=== PATIENT | female | born 1980 | race Caucasian/White ===

== ENCOUNTER 2018-06-27 12:30 | Outpatient (CLI) | payer MEDICARE, MEDICAID ==
--- NOTE | 2018-06-27 18:02 | MRI Report ---
Reason: INTERNAL DERANGEMENT OF LEFT KNEE Procedure Date: 06/27/2018 Accession Number: [id number] / [id number] Procedure: MRI - Knee LT W/O CPT Code: FULL RESULT: EXAM: LEFT KNEE MRI WITHOUT CONTRAST EXAM DATE: 06/27/2018 01:16 PM. CLINICAL HISTORY: Left knee pain. COMPARISON: None. TECHNIQUE: Multiplanar, multisequence T1-weighted and fluid-sensitive sequences of the knee without contrast. Other: None. FINDINGS: Bones: Small bone island at the medial femoral condyle. No acute fracture or marrow edema. Articular Cartilage: Focal grade 1 chondromalacia at the inferior aspect of the lateral patellar facet. Medial Meniscus: The medial meniscus is intact. Lateral Meniscus: The lateral meniscus is intact. Cruciate Ligaments: The anterior and posterior cruciate ligaments are intact. Collateral Ligaments: The medial collateral and lateral collateral ligamentous structures are intact. Tendons: The quadriceps, patellar, semimembranosus, and popliteus tendons are unremarkable. Musculature: No edema or fatty atrophy. Other: No effusion. No popliteal cyst. No loose bodies. The medial and lateral retinacula are intact. The subcutaneous tissues and fat pads are unremarkable. IMPRESSION: 1. Focal grade 1 chondromalacia at the inferior aspect of the lateral patellar facet. 2. Small bone island at the medial femoral condyle. 3. Otherwise, unremarkable MRI of the left knee. No evidence of ligament or meniscal injury. [facility] MUSCULOSKELETAL RADIOLOGY SECTION
== END 2018-06-27 12:31 | disposition home or self-care (01) ==
LOC: DI 12:30
PROVIDERS: ATTEND Family Medicine
DX: M22.42 Chondromalacia patellae, left knee (principal)

== ENCOUNTER 2021-06-22 08:00 | Outpatient (CLI) | payer MEDICARE, MEDICAID | END 2021-06-22 23:59 | LOC: LAB.N 08:00 | PROVIDERS: ATTEND Nurse Practitioner | DX: R07.0 Pain in throat (principal); Z20.822 Contact with and (suspected) exposure to COVID-19 | CPT/HCPCS: 87070; U0004 ==

== ENCOUNTER 2022-06-16 08:00 | Outpatient (CLI) | payer MEDICARE, MEDICAID ==
[2022-06-16 17:00] LABS: BASOPHILS % (AUTO) 0.8 %; EOSINOPHILS # (AUTO) 0.2 10^3/uL (0.0-0.7); EOSINOPHILS % (AUTO) 4.4 %; HCT - HEMATOCRIT 37.4 % (37.0-47.0); HGB - HEMOGLOBIN 12.5 g/dL (12.0-16.0); LYMPHOCYTES # (AUTO) 1.1 10^3/uL (1.5-3.5); LYMPHOCYTES % (AUTO) 20.9 %; MEAN CORPUSCULAR HEMOGLOBIN 30.7 pg (27.0-31.0); MEAN CORPUSCULAR HGB CONC 33.4 g/dL (32.0-36.0); MEAN CORPUSCULAR VOLUME 91.9 fL (81.0-99.0); MEAN PLATELET VOLUME 9.5 fL (7.9-10.8); MONOCYTES # (AUTO) 0.5 10^3/uL (0.0-1.0); NEUTROPHILS # (AUTO) 3.2 10^3/uL (1.5-6.6); NEUTROPHILS % (AUTO) 63.7 %; PLT - PLATELET COUNT 277 10^3/uL (130-450); RED BLOOD COUNT 4.07 10^6/uL (4.20-5.40); RED CELL DISTRIBUTION WIDTH 13.6 % (12.0-15.0)
[2022-06-16 17:17] LABS: ALBUMIN 3.9 g/dL (3.2-5.5); ALBUMIN/GLOBULIN RATIO 0.9 (1.0-2.2); ALKALINE PHOSPHATASE 54 IU/L (42-121); ALT ALANINE AMINOTRANSFERASE 11 IU/L (10-60); AST ASPARTATE AMINOTRANSFERASE 18 IU/L (10-42); BILIRUBIN,TOTAL 0.3 mg/dL (0.2-1.0); BUN - BLOOD UREA NITROGEN 12 mg/dL (6-20); CARBON DIOXIDE - CO2 27 mmol/L (21-32); CHLORIDE 97 mmol/L (101-111); CHOL/HDL RATIO 3.9 (<4.4); CHOLESTEROL 147 mg/dL; CREATININE 0.8 mg/dL (0.4-1.0); GFR - MDRD 79 (>89); GLUCOSE 99 mg/dL (70-100); HDL CHOLESTEROL 38 mg/dL; LDL CHOLESTEROL,CALCULATED 83 mg/dL; LDL/HDL RATIO 2.2 (<4.4); POTASSIUM 4.1 mmol/L (3.5-5.0); SODIUM 133 mmol/L (135-145); TOTAL PROTEIN 8.2 g/dL (6.7-8.2); TRIGLYCERIDES 129 mg/dL; VLDL CHOLESTEROL 26 mg/dL
== END 2022-06-16 23:59 | disposition home or self-care (01) ==
LOC: LAB.R 08:00
PROVIDERS: ATTEND Internal Medicine
DX: Z00.00 Encounter for general adult medical examination without abnormal findings (principal); F41.9 Anxiety disorder, unspecified; K90.0 Celiac disease; Q24.9 Congenital malformation of heart, unspecified; R74.8 Abnormal levels of other serum enzymes; I10 Essential (primary) hypertension; G43.909 Migraine, unspecified, not intractable, without status migrainosus; Z79.899 Other long term (current) drug therapy; Q99.8 Other specified chromosome abnormalities
CPT/HCPCS: 80053; 80061; 83721; 84443; 85025

== ENCOUNTER 2022-08-17 19:06 | Emergency (ER) | payer MEDICARE, MEDICAID ==
--- NOTE | 2022-08-17 20:23 | ED Physician Documentation ---
PD HPI HEADACHE - Stated complaint Stated Complaint: MIGRAINE - Chief complaint Chief Complaint: Neuro - History obtained from History obtained from: Patient, Family - Additional information Additional information: 42-year-old woman with history of Juma syndrome, supravalvular aortic stenosis status postrepair and history of migraines gets infrequent migraines and presents with 8 days of constant headache that was preceded by runny nose, cough, sore throat and myalgias. She tested negative for COVID and the flu. She is tried numerous things at home for the headache including but not limited to NSAIDs, hydrocodone. She is also on Cipro prescribed by the walk-in clinic for presumed sinusitis. Nothing is helping. Headache is gradual in onset, bitemporal, associated with nausea and light sensitivity. It is the worst headache of her life. She denies fevers or neck stiffness. She is here with her mother. Review of Systems Ten Systems: 10 systems reviewed and negative Constitutional: denies: Fever, Chills Ears: reports: Reviewed and negative Nose: reports: Rhinorrhea / runny nose, Sinus pressure / pain Throat: reports: Sore throat PD PAST MEDICAL HISTORY - Past Medical History Cardiovascular: Hypertension GI: Other Psych: Anxiety, Panic attacks - Past Surgical History Past Surgical History: Yes General: Bowel surgery, Colonoscopy - Present Medications Home Medications: Ambulatory Orders Medication Instructions Recorded Confirmed Buspirone HCl 10 mg PO BID 02/25/13 04/04/15 Clonazepam 1 mg PO QPM 02/25/13 04/04/15 Escitalopram [Lexapro] 10 mg PO DAILY 02/25/13 12/21/15 LORazepam [Ativan] 1 mg PO ONCE PRN 02/25/13 12/21/15 OLANZapine [ZyPREXA] 3.75 mg PO DAILY 02/25/13 12/21/15 Propranolol ER [Inderal LA] 80 mg PO DAILY 02/25/13 12/21/15 Hydrocodone/Acetaminophen 1 - 2 each PO Q6H PRN #15 tablet 04/04/15 12/21/15 [Hydrocodon-Acetaminophen 5-325] Lansoprazole 15 mg ORAL DAILY 04/04/15 12/21/15 clonazePAM [KlonoPIN] 1 mg PO DAILY 12/21/15 12/21/15 Oxycodone HCl/Acetaminophen 1 each PO Q6H PRN #15 tablet 12/22/15 [Percocet 5-325 mg Tablet] methocarbamoL [Robaxin] 500 mg PO Q6H PRN #25 tablet 12/22/15 Butalb/Acetaminophen/Caffeine 1 each PO Q4H PRN #20 cap 08/17/22 [Fioricet 50-300-40 mg Capsule] Metoclopramide [Reglan] 10 mg PO Q6H PRN #20 tablet 08/17/22 - Allergies Allergies/Adverse Reactions: Allergies Allergy/AdvReac Type Severity Reaction Status Date / Time cephalexin monohydrate * Allergy Severe Edema Verified 08/17/22 19:21 [From Keflex] erythromycin base Allergy Severe Edema Verified 08/17/22 19:21 [Erythromycin Base] Penicillins Allergy Severe Edema Verified 08/17/22 19:21 Sulfa (Sulfonamide Allergy Intermediate Rash Verified 08/17/22 19:21 Antibiotics) tetracycline [Tetracycline] Allergy Intermediate Rash Verified 08/17/22 19:21 vancomycin Allergy Intermediate Rash Verified 08/17/22 19:21 Cephalosporins Allergy Edema Verified 08/17/22 19:21 - Social History Does the pt smoke?: No Smoking Status: Never smoker Does the pt drink ETOH?: No Does the pt have substance abuse?: No - Immunizations Immunizations are current?: Yes - POLST Patient has POLST: Yes PD ED PE NORMAL - Vitals Vital signs reviewed: Yes - General General: Alert and oriented X 3, No acute distress - HEENT HEENT: PERRL, EOMI, Ears normal, Other (Bilateral maxillary sinus tenderness) - Neck Neck: Supple, no meningeal sign, No bony TTP - Cardiac Cardiac: RRR, No murmur - Respiratory Respiratory: No respiratory distress, Clear bilaterally - Abdomen Abdomen: Normal bowel sounds, Soft, Non tender - Derm Derm: No rash - Neuro Neuro: Alert and oriented X 3, Normal speech Results - Vitals Vitals: Vital Signs - 24 hr 08/17/22 08/17/22 08/17/22 19:16 21:21 23:00 Temperature 36.5 C Heart Rate 62 60 62 Respiratory 16 16 17 Rate Blood Pressure 143/72 H 138/71 H 130/69 O2 Saturation 100 99 99 08/17/22 23:01 Temperature 36.5 C Heart Rate 60 Respiratory 19 Rate Blood Pressure 133/69 H O2 Saturation 99 Oxygen O2 Source Room air - Labs Labs: Laboratory Tests 08/17/22 08/17/22 20:42 20:42 WBC 8.9 RBC 4.13 L Hgb 12.6 Hct 38.4 MCV 93.0 MCH 30.5 MCHC 32.8 RDW 14.3 Plt Count 333 MPV 8.3 Neut # (Auto) 4.4 Lymph # (Auto) 3.2 [place] # (Auto) 0.8 Eos # (Auto) 0.5 Baso # (Auto) 0.1 Absolute Nucleated RBC 0.00 Nucleated RBC % 0.0 Sodium 136 Potassium 4.2 Chloride 98 L Carbon Dioxide 27 Anion Gap 11.0 BUN 14 Creatinine 0.9 Estimated GFR (MDRD) 69 L Glucose 114 H Calcium 9.9 Total Bilirubin 0.5 AST 17 ALT 19 Alkaline Phosphatase 56 Total Protein 9.3 H Albumin 4.2 Globulin 5.1 H Albumin/Globulin Ratio 0.8 L PD MEDICAL DECISION MAKING - ED course ED course: 42yo female here with mom, hx Juma syndrome and migraines. Has WHOL, but nothing else to suggest sinister etiology such as sudden onset, fever, neck stiff. CTA neg. Initial Tx IV benadryl, reglan, and toradol. Pain from 10 to 5 After IV droperidol down to 2-3 and pt very happy with that. Departure - Departure Disposition: 01 Home, Self Care Clinical Impression: Migraine Condition: Good Record reviewed to determine appropriate education?: Yes Instructions: ED Headache Migraine Prescriptions: Butalb/Acetaminophen/Caffeine [Fioricet 50-300-40 mg Capsule] 1 each PO Q4H PRN #20 cap PRN Reason: Headache Metoclopramide [Reglan] 10 mg PO Q6H PRN #20 tablet PRN Reason: nausea or headache Comments: You are seen tonight for a headache of 8 days duration. Thankfully diagnostic testing did not show anything of significance, the CT angiography of the head w as negative with exception of some fluid in the mastoids which are the posterior sinuses, not where you are having your pain. Initially we gave you a combination of Reglan, Toradol, and Benadryl which took your headache down pretty good and this was followed by a shot of droperidol which was even more effective. I sent your prescriptions electronically to [facility] in [place]. Call your doctor to arrange a follow-up appointment, make the next available appointment. In the interim, return anytime if worse or if new symptoms develop. Discharge Date/Time: 08/17/22 23:20
[2022-08-17] MEDS ORDERED: SODIUM CHLORIDE 0.9% 1,000 ML IV STA (20:32)
[2022-08-17] MEDS ORDERED: METOCLOPRAMIDE 10 MG/2 ML VIAL IVP STA (20:32)
[2022-08-17] MEDS ORDERED: KETOROLAC 15 MG/ML VIAL IVP STA (20:32)
[2022-08-17] MEDS ORDERED: diphenhydrAMINE INJ 50 MG/ML VIAL IVP STA (20:32)
[2022-08-17 20:48] LABS: BASOPHILS # (AUTO) 0.1 10^3/uL (0.0-0.1); BASOPHILS % (AUTO) 0.7 %; EOSINOPHILS # (AUTO) 0.5 10^3/uL (0.0-0.7); HCT - HEMATOCRIT 38.4 % (37.0-47.0); HGB - HEMOGLOBIN 12.6 g/dL (12.0-16.0); LYMPHOCYTES # (AUTO) 3.2 10^3/uL (1.5-3.5); LYMPHOCYTES % (AUTO) 36.3 %; MEAN CORPUSCULAR HEMOGLOBIN 30.5 pg (27.0-31.0); MEAN CORPUSCULAR HGB CONC 32.8 g/dL (32.0-36.0); MEAN PLATELET VOLUME 8.3 fL (7.9-10.8); MONOCYTES # (AUTO) 0.8 10^3/uL (0.0-1.0); MONOCYTES % (AUTO) 8.5 %; NEUTROPHILS # (AUTO) 4.4 10^3/uL (1.5-6.6); NEUTROPHILS % (AUTO) 49.3 %; PLT - PLATELET COUNT 333 10^3/uL (130-450); RED BLOOD COUNT 4.13 10^6/uL (4.20-5.40); RED CELL DISTRIBUTION WIDTH 14.3 % (12.0-15.0); WHITE BLOOD COUNT 8.9 x10^3/uL (4.8-10.8)
[2022-08-17 21:01] LABS: ALBUMIN 4.2 g/dL (3.2-5.5); ALBUMIN/GLOBULIN RATIO 0.8 (1.0-2.2); BILIRUBIN,TOTAL 0.5 mg/dL (0.2-1.0); CALCIUM 9.9 mg/dL (8.5-10.3); CREATININE 0.9 mg/dL (0.4-1.0); POTASSIUM 4.2 mmol/L (3.5-5.0); TOTAL PROTEIN 9.3 g/dL (6.7-8.2)
[2022-08-17] MEDS ORDERED: iohexoL-300 100 ML VIAL ONE (21:11)
--- NOTE | 2022-08-17 22:03 | CT Report ---
PROCEDURE: ANGIO HEAD W/WO INDICATIONS: headache CONTRAST: Omni 300 80ml TECHNIQUE: Precontrast 4.5 mm thick angled axial sections acquired from the foramen magnum to the vertex. Afte r the administration of intravenous contrast, 1 mm thick sections acquired through the [place] of [place] is. Postcontrast 4.5 mm thick sections then re-acquired from the foramen magnum to the vertex. 3-di mensional lhmhovl-ueefcbgfb-sdxwfzmpuc (MIP) and/or volume rendering reformats were acquired of the c entral intracranial vasculature. For radiation dose reduction, the following was used: automated ex posure control, adjustment of mA and/or kV according to patient size. COMPARISON: CT head 12/22/2015 FINDINGS: Image quality: There is mild motion artifact limiting evaluation. Anterior circulation: Intracranial internal carotid arteries are patent bilaterally. The paired an terior cerebral arteries are patent bilaterally. There is tortuosity of the A1 segment of the right a nterior cerebral artery which courses over midline to the left side but appears patent. The middle ce rebral arteries are also patent bilaterally. The anterior communicating artery is patent. No high-g rade stenosis, occlusion, or discrete filling defects. No cerebral aneurysm identified. Posterior circulation: There is a right dominant vertebral basilar system with a diminutive left vert ebral artery. The basilar artery is prominent supplied by the right vertebral artery. The basilar art german[place] appears patent along its course. The posterior cerebral arteries are patent bilaterally. There is persistent second lesion on the left, with the left posterior cerebral artery supplied by a po sterior communicating artery. No high-grade stenosis, occlusion, or discrete filling defects. No cere bral aneurysm identified. CSF spaces: Basal cisterns are patent. No extra-axial fluid collections. Ventricles are normal in size and shape. Brain: No intracranial hemorrhage, mass, or mass effect. Del Angel-white matter interface appears preser deb. Skull and face: Calvarium and facial bones appear intact, without suspicious lesions. Sinuses: Visualized sinuses demonstrate mild mucosal thickening within the inferior mastoid sinuses. Mastoid air cells are clear. IMPRESSION: 1. No acute intracranial abnormality. 2. No high-grade stenosis or occlusion of the central intracranial arteries. 3. No cerebral aneurysms identified. Reviewed by: Kory Jarvis MD on 08/17/2022 10:02 PM [facility] Approved by: Kory Jarvis MD on 08/17/2022 10:02 PM [facility] Station ID: [id number]
[2022-08-17] MEDS ORDERED: DROPERIDOL 5 MG/2 ML VIAL IVP STA (22:16)
[2022-08-17] MEDS ORDERED: iohexoL-300 100 ML VIAL IVP ONE (22:36)
[2022-08-17 23:02] VITALS: BP 133/69
== END 2022-08-17 23:20 | disposition home or self-care (01) ==
LOC: ED 19:06
DX: G43.909 Migraine, unspecified, not intractable, without status migrainosus (principal)
CPT/HCPCS: 36415; 70496; 80053; 85025; 96361; 96374; 96375; 99284; J1200; J2765; Q9967

== ENCOUNTER 2022-11-23 09:10 | Emergency (ER) | payer MEDICARE, MEDICAID ==
[2022-11-23] MEDS ORDERED: diphenhydrAMINE INJ 50 MG/ML VIAL IVP STA (10:46)
[2022-11-23] MEDS ORDERED: PROCHLORPERAZINE 10 MG/2 ML VIAL IVP STA (10:46)
[2022-11-23] MEDS ORDERED: DEXAMETHASONE 10 MG/ML VIAL IVP STA (10:46)
[2022-11-23] MEDS ORDERED: SODIUM CHLORIDE 0.9% 1,000 ML IV STA (10:46)
[2022-11-23] MEDS ORDERED: KETOROLAC 30 MG/ML VIAL IVP STA (10:46)
[2022-11-23 11:20] VITALS: BP 166/83
--- NOTE | 2022-11-23 11:49 | ED Physician Documentation ---
PD HPI HEADACHE - Stated complaint Stated Complaint: MIGRAINE - Chief complaint Chief Complaint: Neuro - History obtained from History obtained from: Patient, Family - History of Present Illness Timing - onset: Enter time (399), Today Timing - onset during: Rest Timing - duration: Hours Timing - details: Gradual onset, Still present Location: Front Quality: Throbbing Associated symptoms: Nausea, Vomiting, Other (photophobia). No: Fever, Stiff neck, Weakness, Numbness, Syncope, Seizure, Eye pain, Vision changes Improved by: Rest, Dark room Contributing factors: No: Anticoagulated, Possible carbon monoxide, Recent illness, Trauma Similar symptoms before: Diagnosis (migraine) Recently seen: Not recently seen - Additional information Additional information: 42-year-old Tiffany Cruz is a female with a history of Juma syndrome and supra aortic stenosis which has been repaired. She is having a problem with recurrent headache and persistent migraine. She was seen in the emergency department in August with this headache and since it was the worst headache she had and she had not been having headaches a CTA of the head was done without specific findings. She had successful treatment with Inapsine. She has not had relief of his headache with ibuprofen and Tylenol. She is here today with her mother who provides additional history as she has some developmental delay. Review of Systems Constitutional: denies: Fever, Chills, Myalgias Eyes: reports: Photophobia. denies: Decreased vision Nose: denies: Rhinorrhea / runny nose, Congestion Throat: denies: Sore throat Cardiac: denies: Chest pain / pressure, Palpitations Respiratory: denies: Dyspnea, Cough GI: reports: Nausea, Vomiting. denies: Abdominal Pain : denies: Dysuria, Frequency Skin: denies: Rash Musculoskeletal: denies: Neck pain, Back pain, Extremity pain PD PAST MEDICAL HISTORY - Past Medical History Past Medical History: Yes Cardiovascular: Hypertension, Murmur, Valve disorder Respiratory: Asthma Neuro: Headaches, Migraines GI: Other DEAN OF FACULTY: None : None HEENT: None Psych: Depression, Anxiety, Panic attacks Musculoskeletal: None Derm: None, Other Other Past Medical History: Juma syndrome - Past Surgical History Past Surgical History: Yes General: Bowel surgery, Colonoscopy - Present Medications Home Medications: Ambulatory Orders Medication Instructions Recorded Confirmed Clonazepam 1 mg PO QPM 02/25/13 11/23/22 Escitalopram [Lexapro] 10 mg PO DAILY 02/25/13 11/23/22 LORazepam [Ativan] 1 mg PO ONCE PRN 02/25/13 11/23/22 Propranolol ER [Inderal LA] 80 mg PO DAILY 02/25/13 11/23/22 Buspirone HCl 10 mg PO TID 11/23/22 11/23/22 OLANZapine [Zyprexa] 5 mg PO HS 11/23/22 11/23/22 - Allergies Allergies/Adverse Reactions: Allergies Allergy/AdvReac Type Severity Reaction Status Date / Time cephalexin monohydrate * Allergy Severe Edema Verified 11/23/22 09:17 [From Keflex] erythromycin base Allergy Severe Edema Verified 11/23/22 09:17 [Erythromycin Base] Penicillins Allergy Severe Edema Verified 11/23/22 09:17 Sulfa (Sulfonamide Allergy Intermediate Rash Verified 11/23/22 09:17 Antibiotics) tetracycline [Tetracycline] Allergy Intermediate Rash Verified 11/23/22 09:17 vancomycin Allergy Intermediate Rash Verified 11/23/22 09:17 Cephalosporins Allergy Edema Verified 11/23/22 09:17 latex Allergy Hives Verified 11/23/22 09:17 - Social History Does the pt smoke?: No Smoking Status: Never smoker Does the pt drink ETOH?: No Does the pt have substance abuse?: No - Immunizations Immunizations are current?: Yes - POLST Patient has POLST: Yes PD ED PE NORMAL - Vitals Vital signs reviewed: Yes (hypertensive mild) - General General: No acute distress, Well developed/nourished - HEENT HEENT: Atraumatic, PERRL, EOMI - Neck Neck: Supple, no meningeal sign, No bony TTP, Other (There is point tenderness bilaterally at the insertion of the trapezius into the occiput.) - Cardiac Cardiac: RRR, No murmur - Respiratory Respiratory: No respiratory distress, Clear bilaterally - Abdomen Abdomen: Soft, Non tender - Back Back: No CVA TTP, No spinal TTP - Derm Derm: Normal color, Warm and dry, No rash - Extremities Extremities: No deformity, No edema - Neuro Neuro: dictaphone mechanic 2-12 intact, No motor deficit, No sensory deficit, Normal speech Eye Opening: Spontaneous Motor: Obeys Commands Verbal: Oriented GCS Score: 15 - Psych Psych: Normal mood, Normal affect Results - Vitals Vitals: Vital Signs - 24 hr 11/23/22 11/23/22 11/23/22 09:14 09:46 11:16 Temperature 36.8 C Heart Rate 70 66 66 Respiratory 20 16 16 Rate Blood Pressure 144/67 H 157/80 H 166/83 H O2 Saturation 98 97 97 Oxygen O2 Source Room air PD Medical Decision Making - ED course Complexity details: considered differential, d/w patient, d/w family ED course: 42-year-old female with Juma syndrome has what sounds like a migraine headache and she is treated with migraine cocktail consisting of dexamethasone Compazine Benadryl Toradol saline and she has marked improvement. I did note on examination today that the patient has point tenderness at the insertion of the trapezius into the occiput. Consistent with greater occipital neuritis as a possible contributing factor to headaches. I have asked her to follow-up with her neurologist as she is planning. Departure - Departure Disposition: Home, Self Care Clinical Impression: Migraine Qualifiers: Migraine type: unspecified Status migrainosus presence: without status migrainosus Intractability: not intractable Qualified Code(s): G43.909 - Migraine, unspecified, not intractable, without status migrainosus Condition: Stable Instructions: ED Headache Migraine, ED Headache Tension Follow-Up: Teresa Duffy MD [Primary Care Provider] - Comments: Tiffany, today it looks like you had a migraine headache and there may be a contributing factor with the muscles in your neck pinching a nerve in the back of your head. Follow-up with your primary care doctor for referral to a neurologist for further evaluation of your chronic headaches. We are expecting the treatment given today to decrease the frequency of your headaches and the severity of your headaches for the next 2 weeks.
== END 2022-11-23 12:12 | disposition home or self-care (01) ==
LOC: ED 09:10
DX: G43.909 Migraine, unspecified, not intractable, without status migrainosus (principal); I10 Essential (primary) hypertension
CPT/HCPCS: 96374; 96375; 99283; 99285; J1200

== ENCOUNTER 2022-12-12 00:02 | Emergency (ER) | payer MEDICARE, MEDICAID ==
[2022-12-12] MEDS ORDERED: diphenhydrAMINE INJ 50 MG/ML VIAL IVP STA (00:21)
[2022-12-12] MEDS ORDERED: SODIUM CHLORIDE 0.9% 1,000 ML IV STA (00:21)
[2022-12-12] MEDS ORDERED: KETOROLAC 30 MG/ML VIAL IVP STA (00:21)
[2022-12-12] MEDS ORDERED: METOCLOPRAMIDE 10 MG/2 ML VIAL IVP STA (00:21)
[2022-12-12] MEDS ORDERED: DROPERIDOL 5 MG/2 ML VIAL IVP STA (01:26)
--- NOTE | 2022-12-12 03:02 | ED Physician Documentation ---
PD HPI HEADACHE - Stated complaint Stated Complaint: HEAD PX - Chief complaint Chief Complaint: Neuro - History obtained from History obtained from: Patient, Family (Patient's mother) - Additional information Additional information: Patient is a 42-year-old male with a history of Juma syndrome presenting for evaluation of a headache that has been present since yesterday morning. Patient states that it is a frontal headache and feels like a Bad pressure. Denies vision changes.She states that this is similar to headache she has had in the past. She has tried anti-inflammatories at home without improvement. Mother states that She has an upcoming appointment with a neurologist on December 17 at the [facility].She is not on a blood thinner and has not had any head injuries.She has associated nausea.She denies that this is the worst headache that she has had. Review of Systems Constitutional: denies: Fever Cardiac: denies: Chest pain / pressure Respiratory: denies: Dyspnea GI: reports: Nausea. denies: Abdominal Pain, Vomiting Neurologic: reports: Headache PD PAST MEDICAL HISTORY - Past Medical History Cardiovascular: Hypertension, Murmur, Valve disorder Respiratory: Asthma Neuro: Headaches, Migraines GI: Other CONFIGURATION TECHNICIAN: None : None HEENT: None Psych: Depression, Anxiety, Panic attacks Musculoskeletal: None Derm: None, Other - Past Surgical History Past Surgical History: Yes General: Bowel surgery, Colonoscopy - Present Medications Home Medications: Ambulatory Orders Medication Instructions Recorded Confirmed Clonazepam 1 mg PO QPM 02/25/13 11/23/22 Escitalopram [Lexapro] 10 mg PO DAILY 02/25/13 11/23/22 LORazepam [Ativan] 1 mg PO ONCE PRN 02/25/13 11/23/22 Propranolol ER [Inderal LA] 80 mg PO DAILY 02/25/13 11/23/22 Buspirone HCl 10 mg PO TID 11/23/22 11/23/22 OLANZapine [Zyprexa] 5 mg PO HS 11/23/22 11/23/22 - Allergies Allergies/Adverse Reactions: Allergies Allergy/AdvReac Type Severity Reaction Status Date / Time cephalexin monohydrate * Allergy Severe Edema Verified 11/23/22 09:17 [From Keflex] erythromycin base Allergy Severe Edema Verified 11/23/22 09:17 [Erythromycin Base] Penicillins Allergy Severe Edema Verified 11/23/22 09:17 Sulfa (Sulfonamide Allergy Intermediate Rash Verified 11/23/22 09:17 Antibiotics) tetracycline [Tetracycline] Allergy Intermediate Rash Verified 11/23/22 09:17 vancomycin Allergy Intermediate Rash Verified 11/23/22 09:17 Cephalosporins Allergy Edema Verified 11/23/22 09:17 latex Allergy Hives Verified 11/23/22 09:17 - Social History Does the pt smoke?: No Smoking Status: Never smoker Does the pt drink ETOH?: No Does the pt have substance abuse?: No - Immunizations Immunizations are current?: Yes - POLST Patient has POLST: Yes PD ED PE NORMAL - General General: Alert and oriented X 3, No acute distress, Well developed/nourished - HEENT HEENT: Atraumatic, PERRL, EOMI, Moist mucous membranes, Pharynx benign - Neck Neck: Supple, no meningeal sign - Cardiac Cardiac: RRR - Respiratory Respiratory: No respiratory distress, Clear bilaterally - Abdomen Abdomen: Soft, Non tender - Back Back: No spinal TTP - Derm Derm: Warm and dry - Extremities Extremities: No edema - Neuro Neuro: Alert and oriented X 3, counter sales person 2-12 intact, No motor deficit, No sensory deficit, Normal speech Results - Vitals Vitals: Vital Signs - 24 hr 12/12/22 12/12/22 12/12/22 00:08 01:15 03:08 Temperature 36.7 C 37.3 C Heart Rate 75 76 73 Respiratory 16 17 18 Rate Blood Pressure 152/82 H 162/75 H 144/83 H O2 Saturation 98 97 97 Oxygen O2 Source Room air PD Medical Decision Making - ED course Complexity details: re-evaluated patient, d/w patient, d/w family ED course: Patient presenting for evaluation of headache. She has a history of migraines and is awaiting a neurology appointment on December 17. She has a normal neuro exam and this is not the worst headache she has had.Does not have features to suggest meningitis, subarachnoid hemorrhage, dissection. Patient does not appear septic. She was given migraine cocktail with IV fluids, Reglan, Benadryl, ketorolac with some improvement in her pain. She did not want to try Decadron as she had had it on a prior visit and it made her feel jittery. She does report improvement with droperidol in the past so she was given a dose of this with significant improvement. She is walking to the bathroom.She had given the prior prescription for Fioricet but is on a number of medications for anxiety and per mother was instructed to not take this medication because it has a barbiturate in it. She has Zofran at home from a prescription that Dr. Duffy but has not tried it yet.As she has an upcoming neurology appointment I will not initiate other medications for her. The patient is feeling significantly better and comfortable plan for discharge. She is advised on concerning symptoms to return for. Departure - Departure Disposition: Home, Self Care Clinical Impression: Frontal headache Condition: Stable Instructions: ED Cephalgia Unspecified Comments: You are given medications to help with the migraine headache. Please continue staying hydrated at home and using acetaminophen or ibuprofen as needed. I would recommend trialing the antinausea medicine that Dr. Duffy has already prescribed to you called Shannangurpreet. Please make sure to keep your follow-up appointment with your neurologist this Tuesday. If you develop any worsening symptoms please consider return to the ER. Discharge Date/Time: 12/12/22 03:10
[2022-12-12 03:11] VITALS: BP 144/83
== END 2022-12-12 03:10 | disposition home or self-care (01) ==
LOC: ED 00:02
DX: R51.9 Headache, unspecified (principal); I10 Essential (primary) hypertension
CPT/HCPCS: 96361; 96374; 96375; 99284; J1200; J2765

== ENCOUNTER 2022-12-25 23:26 | Emergency (ER) | payer MEDICARE, MEDICAID ==
[2022-12-26] MEDS ORDERED: KETOROLAC 30 MG/ML VIAL IVP STA (00:11)
[2022-12-26] MEDS ORDERED: DROPERIDOL 5 MG/2 ML VIAL IVP STA (00:11)
[2022-12-26] MEDS ORDERED: SODIUM CHLORIDE 0.9% 1,000 ML IV STA (00:11)
--- NOTE | 2022-12-26 00:11 | ED Physician Documentation ---
PD HPI HEADACHE - Stated complaint Stated Complaint: HEAD PX - Chief complaint Chief Complaint: Neuro - History obtained from History obtained from: Patient, Family (mother) - History of Present Illness Timing - onset: Today Timing - onset during: Rest Timing - duration: Hours Timing - details: Gradual onset, Still present Location: Front Quality: Throbbing Associated symptoms: Stiff neck, Nausea. 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 The patient has a history of frequent headaches and now has daily migraine and she has been in to see the neurologist and she has been placed on Ubrelvy. She has taken 2 doses of this medication and this was what she is allowed per week. She took a dose earlier this morning and got about 11 hours of relief. She now has symptoms and nausea without vomiting. She has been into the emergency department twice in the past month and into her neurologist office as well. On her last visit she indicated that she did not like the dexamethasone as it seemed to cause her to be jittery. She did have improvement with the use of droperidol. 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 She is down to 200 mg 3 times daily. Review of Systems Constitutional: denies: Fever Eyes: denies: Decreased vision Ears: denies: Ear pain Nose: denies: Congestion Throat: denies: Sore throat Respiratory: denies: Cough GI: reports: Nausea. denies: Vomiting PD PAST MEDICAL HISTORY - Past Medical History Cardiovascular: Hypertension, Murmur, Valve disorder Respiratory: Asthma Neuro: Headaches, Migraines GI: Other SECOND HAND: None : None HEENT: None Psych: Depression, Anxiety, Panic attacks Musculoskeletal: None Derm: None, Other - Past Surgical History Past Surgical History: Yes General: Bowel surgery, Colonoscopy - Present Medications Home Medications: Ambulatory Orders Medication Instructions Recorded Confirmed Clonazepam 1 mg PO QPM 02/25/13 11/23/22 Escitalopram [Lexapro] 10 mg PO DAILY 02/25/13 11/23/22 LORazepam [Ativan] 1 mg PO ONCE PRN 02/25/13 11/23/22 Propranolol ER [Inderal LA] 80 mg PO DAILY 02/25/13 11/23/22 Buspirone HCl 10 mg PO TID 11/23/22 11/23/22 OLANZapine [Zyprexa] 5 mg PO HS 11/23/22 11/23/22 - Allergies Allergies/Adverse Reactions: Allergies Allergy/AdvReac Type Severity Reaction Status Date / Time cephalexin monohydrate * Allergy Severe Edema Verified 12/25/22 23:37 [From Keflex] erythromycin base Allergy Severe Edema Verified 12/25/22 23:37 [Erythromycin Base] Penicillins Allergy Severe Edema Verified 12/25/22 23:37 Sulfa (Sulfonamide Allergy Intermediate Rash Verified 12/25/22 23:37 Antibiotics) tetracycline [Tetracycline] Allergy Intermediate Rash Verified 12/25/22 23:37 vancomycin Allergy Intermediate Rash Verified 12/25/22 23:37 Cephalosporins Allergy Edema Verified 12/25/22 23:37 latex Allergy Hives Verified 12/25/22 23:37 - Social History Does the pt smoke?: No Smoking Status: Never smoker Does the pt drink ETOH?: No Does the pt have substance abuse?: No - Immunizations Immunizations are current?: Yes - POLST Patient has POLST: Yes PD ED PE NORMAL - Vitals Vital signs reviewed: Yes (hypertensive mild ) - General General: No acute distress, Well developed/nourished - HEENT HEENT: Atraumatic, PERRL, EOMI - Neck Neck: Supple, no meningeal sign, No bony TTP, Other (There is specific point tenderness to the trapezius at the insertion to the occiput on the right side. This muscle appears firm and different from the left. There is some mild tenderness at the insertion on the left as well.) - Cardiac Cardiac: RRR, No murmur - Respiratory Respiratory: No respiratory distress, Clear bilaterally - Abdomen Abdomen: Soft, Non tender - Back Back: No CVA TTP, No spinal TTP - Derm Derm: Normal color, Warm and dry, No rash - Extremities Extremities: No deformity, No edema - Neuro Neuro: manager inventory 2-12 intact, No motor deficit, No sensory deficit, Normal speech Eye Opening: Spontaneous Motor: Obeys Commands Verbal: Oriented GCS Score: 15 - Psych Psych: Normal mood, Normal affect Results - Vitals Vitals: Vital Signs - 24 hr 12/25/22 12/26/22 12/26/22 23:31 00:43 01:25 Temperature 36.2 C L 36.8 C Heart Rate 69 68 66 Respiratory 16 16 Rate Blood Pressure 144/68 H 172/80 H O2 Saturation 99 98 100 Oxygen O2 Source Room air PD Medical Decision Making - ED course Complexity details: reviewed old records, reviewed results, re-evaluated patient, considered differential, d/w patient, d/w family Social Determinants of Health: This 42-year-old female 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 The mother is a good historian and take as good care of her daughter. ED course: 42-year-old female with daily migraine and history of Juma syndrome is tapering off of ibuprofen. She is under the care of of a neurologist. For this reason I did not attempt to provide a trigger point injection to her right trapezius for treatment of greater occipital neuritis. I have encouraged the patient's mother to pursue this as a possible form of treatment but I did e xplain to her that the rebound phenomena with the ibuprofen should be ruled out before we attempt this. Today here in the emergency department she had good relief with the use of droperidol 2.5 mg Toradol 30 mg a liter of saline and 25 mg of Benadryl. At the conclusion of treatment the patient exclaimed "I feel much better". Departure - Departure Disposition: 01 Home, Self Care Clinical Impression: Migraine Qualifiers: Migraine type: without aura Status migrainosus presence: without status migrainosus Intractability: not intractable Qualified Code(s): G43.009 - Migraine without aura, not intractable, without status migrainosus Condition: Stable Instructions: ED Headache Migraine Follow-Up: Teresa Duffy MD [Provider Admit Priv/Credential] - Comments: Today we gave Tiffany 2.5 mg of droperidol, 30 mg of Toradol, 25 mg of Benadryl and a liter of saline. This appears to have been effective for her headache. I have noted on physical examination today that she has some specific point tenderness and a tight trapezius on the right more than the left. If she does not have improvement from reducing her ibuprofen consideration for a trigger point injection might be indicated. Discharge Date/Time: 12/26/22 01:28
[2022-12-26] MEDS ORDERED: diphenhydrAMINE INJ 50 MG/ML VIAL IVP STA (00:12)
[2022-12-26 01:29] VITALS: BP 172/80
== END 2022-12-26 01:28 | disposition home or self-care (01) ==
LOC: ED 23:26
DX: G43.009 Migraine without aura, not intractable, without status migrainosus (principal); Q93.82 Williams syndrome; I10 Essential (primary) hypertension
CPT/HCPCS: 96374; 96375; 99283; J1200

== ENCOUNTER 2023-06-11 13:01 | Emergency (ER) | payer MEDICARE, MEDICAID ==
[2023-06-11 13:43] LABS: BASOPHILS # (AUTO) 0.1 10^3/uL (0.0-0.1); BASOPHILS % (AUTO) 0.8 %; EOSINOPHILS # (AUTO) 0.2 10^3/uL (0.0-0.7); EOSINOPHILS % (AUTO) 2.7 %; HCT - HEMATOCRIT 37.7 % (37.0-47.0); HGB - HEMOGLOBIN 11.8 g/dL (12.0-16.0); LYMPHOCYTES # (AUTO) 1.9 10^3/uL (1.5-3.5); LYMPHOCYTES % (AUTO) 24.7 %; MEAN CORPUSCULAR HEMOGLOBIN 28.9 pg (27.0-31.0); MEAN CORPUSCULAR HGB CONC 31.3 g/dL (32.0-36.0); MEAN CORPUSCULAR VOLUME 92.2 fL (81.0-99.0); MEAN PLATELET VOLUME 8.6 fL (7.9-10.8); MONOCYTES # (AUTO) 0.6 10^3/uL (0.0-1.0); MONOCYTES % (AUTO) 7.1 %; NEUTROPHILS # (AUTO) 5.1 10^3/uL (1.5-6.6); NEUTROPHILS % (AUTO) 64.3 %; PLT - PLATELET COUNT 316 10^3/uL (130-450); RED BLOOD COUNT 4.09 10^6/uL (4.20-5.40); WHITE BLOOD COUNT 7.9 x10^3/uL (4.8-10.8)
[2023-06-11 13:58] LABS: ALBUMIN 4.2 g/dL (3.2-5.5); BILIRUBIN,TOTAL 0.3 mg/dL (0.2-1.0); CALCIUM 9.6 mg/dL (8.5-10.3); CREATININE 0.9 mg/dL (0.6-1.3); POTASSIUM 4.3 mmol/L (3.5-4.5); TOTAL PROTEIN 8.5 g/dL (6.4-8.9)
[2023-06-11 14:06] LABS: BILIRUBIN,URINE NEGATIVE (NEGATIVE); GLUCOSE, URINE (UA) NEGATIVE (NEGATIVE); KETONES,URINE (UA) NEGATIVE (NEGATIVE); LEUKOCYTE ESTERASE, URINE NEGATIVE (NEGATIVE); NITRITE,URINE NEGATIVE (NEGATIVE); OCCULT BLOOD,URINE NEGATIVE (NEGATIVE); PROTEIN,URINE NEGATIVE (NEGATIVE); UROBILINOGEN,URINE 0.2 (NORMAL) E.U./dL (NORMAL)
[2023-06-11 14:07] LABS: CLARITY,URINE CLEAR (CLEAR)
[2023-06-11] MEDS ORDERED: KETOROLAC 30 MG/ML VIAL IVP STA ×2 (14:08→18:52)
--- NOTE | 2023-06-11 14:11 | ED Physician Documentation ---
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 She has had a bowel resection in the past. Has not had any vomiting. Has intermittent diarrhea. No blood in the stool. No fevers. No chills. Did have decreased appetite today. Review of Systems Constitutional: denies: Fever, Chills Respiratory: denies: Cough GI: denies: Vomiting, Hematemesis, Bloody / black stool : denies: Dysuria, Frequency, Hesitancy Skin: denies: Rash Musculoskeletal: denies: Neck pain, Back pain Neurologic: denies: Headache PD PAST MEDICAL HISTORY - Past Medical History Cardiovascular: Hypertension, Murmur, Valve disorder Respiratory: Asthma Neuro: Headaches, Migraines GI: Other CONTROL CLERK FOOD AND BEVERAGE: None : None HEENT: None Psych: Depression, Anxiety, Panic attacks Musculoskeletal: None Derm: None, Other - Past Surgical History Past Surgical History: Yes General: Bowel surgery, Colonoscopy - Present Medications Home Medications: Ambulatory Orders Medication Instructions Recorded Confirmed Clonazepam 1 mg PO QPM 02/25/13 11/23/22 Escitalopram [Lexapro] 10 mg PO DAILY 02/25/13 11/23/22 LORazepam [Ativan] 1 mg PO ONCE PRN 02/25/13 11/23/22 Propranolol ER [Inderal LA] 80 mg PO DAILY 02/25/13 11/23/22 Buspirone HCl 10 mg PO TID 11/23/22 11/23/22 OLANZapine [Zyprexa] 5 mg PO HS 11/23/22 11/23/22 Ciprofloxacin HCl [Cipro] 500 mg PO BID #14 tablet 06/11/23 Ketorolac [Toradol] 10 mg PO Q6H PRN #20 tablet 06/11/23 metroNIDAZOLE [Flagyl] 500 mg PO BID #14 tablet 06/11/23 - Allergies Allergies/Adverse Reactions: Allergies Allergy/AdvReac Type Severity Reaction Status Date / Time cephalexin monohydrate * Allergy Severe Edema Verified 03/25/23 23:37 [From Keflex] erythromycin base Allergy Severe Edema Verified 12/25/22 23:37 [Erythromycin Base] Penicillins Allergy Severe Edema Verified 12/25/22 23:37 Sulfa (Sulfonamide Allergy Intermediate Rash Verified 12/25/22 23:37 Antibiotics) tetracycline [Tetracycline] Allergy Intermediate Rash Verified 12/25/22 23:37 vancomycin Allergy Intermediate Rash Verified 12/25/22 23:37 Cephalosporins Allergy Edema Verified 12/25/22 23:37 latex Allergy Hives Verified 12/25/22 23:37 - Social History Does the pt smoke?: No Smoking Status: Never smoker Does the pt drink ETOH?: No Does the pt have substance abuse?: No - Immunizations Immunizations are current?: Yes - POLST Patient has POLST: Yes PD ED PE NORMAL - Vitals Vital signs reviewed: Yes - General General: Alert and oriented X 3, No acute distress - HEENT HEENT: PERRL, Moist mucous membranes - Neck Neck: Supple, no meningeal sign - Cardiac Cardiac: RRR, Strong equal pulses - Respiratory Respiratory: No respiratory distress, Clear bilaterally - Abdomen Abdomen: Soft, Non distended, Other (Tender to palpation right and left lower quadrant. No peritoneal signs. No rebound or guarding.) - Back Back: No CVA TTP, No spinal TTP - Derm Derm: Warm and dry - Extremities Extremities: No edema, No calf tenderness / cord - Neuro Neuro: Alert and oriented X 3 - Psych Psych: Normal mood, Normal affect Results - Vitals Vitals: Vital Signs - 24 hr 06/11/23 06/11/23 06/11/23 13:15 13:18 15:18 Temperature 36.7 C 36.7 C 36.6 C Heart Rate 69 69 70 Respiratory 20 20 18 Rate Blood Pressure 134/61 H 134/61 H 130/60 O2 Saturation 96 96 98 06/11/23 06/11/23 17:00 19:00 Temperature 36.5 C Heart Rate 70 72 Respiratory 16 16 Rate Blood Pressure 128/60 124/64 O2 Saturation 98 100 Oxygen O2 Source Room air - Labs Labs: Laboratory Tests 06/11/23 06/11/23 06/11/23 13:25 13:27 13:29 WBC 7.9 RBC 4.09 L Hgb 11.8 L Hct 37.7 MCV 92.2 MCH 28.9 MCHC 31.3 L RDW 16.0 H Plt Count 316 MPV 8.6 Neut # (Auto) 5.1 Lymph # (Auto) 1.9 [place] # (Auto) 0.6 Eos # (Auto) 0.2 Baso # (Auto) 0.1 Absolute Nucleated RBC 0.00 Nucleated RBC % 0.0 Sodium Potassium Chloride Carbon Dioxide Anion Gap BUN Creatinine Estimated GFR (MDRD) Glucose Calcium Total Bilirubin AST ALT Alkaline Phosphatase Total Protein Albumin Globulin Albumin/Globulin Ratio Lipase Urine Color YELLOW Urine Clarity CLEAR Urine pH 7.0 Ur Specific [place] <=1.005 Urine Protein NEGATIVE Urine Glucose (UA) NEGATIVE Urine Ketones NEGATIVE Urine Occult Blood NEGATIVE Urine Nitrite NEGATIVE Urine Bilirubin NEGATIVE Urine Urobilinogen 0.2 (NORMAL) Ur Leukocyte Esterase NEGATIVE Ur Microscopic Review NOT INDICATED Urine Culture Comments NOT INDICATED Urine HCG, Qual NEGATIVE 06/11/23 13:29 WBC RBC Hgb Hct MCV MCH MCHC RDW Plt Count MPV Neut # (Auto) Lymph # (Auto) [place] # (Auto) Eos # (Auto) Baso # (Auto) Absolute Nucleated RBC Nucleated RBC % Sodium 136 Potassium 4.3 Chloride 101 Carbon Dioxide 30 Anion Gap 5.0 L BUN 10 Creatinine 0.9 Estimated GFR (MDRD) 69 L Glucose 123 H Calcium 9.6 Total Bilirubin 0.3 AST 11 ALT 9 L Alkaline Phosphatase 61 Total Protein 8.5 Albumin 4.2 Globulin 4.3 H Albumin/Globulin Ratio 1.0 Lipase 34 Urine Color Urine Clarity Urine pH Ur Specific [place] Urine Protein Urine Glucose (UA) Urine Ketones Urine Occult Blood Urine Nitrite Urine Bilirubin Urine Urobilinogen Ur Leukocyte Esterase Ur Microscopic Review Urine Culture Comments Urine HCG, Qual - Rads (name of study) CT abdomen and pelvis Relevant Findings:: Final report received, See rad report PD Medical Decision Making - ED course Complexity details: reviewed results, re-evaluated patient, considered differential, d/w patient, d/w family, d/w practice management consultant ED course: 42-year-old female with lower abdominal pain. Unclear etiology, no acute inflammation in the abdomen on CT. Has had a partial sigmoidectomy. Near the anastomosis there is a extraluminal chronic appearing abscess with free fistulous connection. 4.5 cm. There are also several cysts in the uterine fundus, intimately associated with the adjacent small bowel. Possible fistula? Discussed the case with Dr. Boo, general surgery on-call, recommends placing the patient on Cipro and Flagyl. Recommends close follow-up with [facility] and her specialist there. Patient is very well- appearing, nontoxic. Normal white blood cell count. No fevers. No reported fevers. No evidence of active infection. Patient and family counseled regarding signs and symptoms for which I believe and urgent re-evaluation would be necessary. Patient with good understanding of and agreement to plan and is comfortable going home at this time This document was made in part using voice recognition software. While efforts are made to proofread this document, sound alike and grammatical errors may occur. PROCEDURE: CT abdomen pelvis with contrast INDICATIONS: Lower abdominal pain TECHNIQUE: Helical axial CT of the abdomen and pelvis was obtained after intravenous contrast administration and reformatted in multiple planes. Radiation dose reduction was achieved using automated exposure control or adjustment of mA and/or kV according to patient size. COMPARISON: None FINDINGS: Lower thorax: Cardiomegaly. Lung bases are clear.. Liver: Hepatic parenchyma is diffusely decreased in attenuation without focal mass lesion. Biliary system: No calcified cholelithiasis or pericholecystic inflammation. No evidence of bile duct dilatation. Pancreas: Unremarkable without mass or inflammation evident. Spleen: Normal in size and density. Adrenals: Normal morphology and density. Reproductive system: As below Urinary system: Normal renal size and attenuation. No renal calculi, hydronephrosis, or solid mass present. Urinary bladder unremarkable. Gastrointestinal system: Moderate fecal debris throughout the colon. Partial sigmoidectomy noted. There is an adjacent chronic-appearing extraluminal abscess with free fistulous communication to the colon at the level of the anastomosis. Overall, abscess measures approximately 4.5 cm. Additionally, several cysts noted in the uterine fundus also appears to be intimately associated with adjacent small bowel Appendix: No findings to suggest acute appendicitis. Peritoneal spaces: No mesenteric or retroperitoneal adenopathy. No free air. No free fluid. Vasculature: The IVC, aorta and iliac vasculature are unremarkable. Abdominal wall: Small periumbilical ventral hernia Musculoskeletal: Normal bone mineralization. No acute fractures. 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 Additionally, small bowel matted to the serosal surface of the uterine fundus also associated with several myometrial cystic structures, raising the possibility of enteric- uterine fistula as well. Consider follow-up contrast MRI pelvis Departure - Departure Disposition: 01 Home, Self Care Clinical Impression: Intra-abdominal abscess Condition: Good Instructions: ED Abdominal Pain Female Non-Specific Abdominal Pain Follow-Up: your,doctor in 3-5 days [Other] Prescriptions: Ciprofloxacin HCl [Cipro] 500 mg PO BID #14 tablet metroNIDAZOLE [Flagyl] 500 mg PO BID #14 tablet Ketorolac [Toradol] 10 mg PO Q6H PRN #20 tablet PRN Reason: back pain Comments: Please follow-up with her doctor for further care. Her CT scan does show her partial sigmoidectomy and at the level of the anastomosis there appears to be chronic extraluminal abscess with a fistulous connection to the colon. There were several cysts noted in the uterus and it appears that those could be associated with the small bowel. We will place her on antibiotics for home. Please take all antibiotics until gone. Is recommend that she follow-up closely with her specialist at the [facility] to discuss further management. They may want to perform an MRI of her pelvis as well for further characterization. Please return if she worsens including fevers, vomiting or other new or worrisome symptoms. Your prescriptions were sent to [facility] in [place]. PROCEDURE: CT abdomen pelvis with contrast INDICATIONS: Lower abdominal pain TECHNIQUE: Helical axial CT of the abdomen and pelvis was obtained after intravenous contrast administration and reformatted in multiple planes. Radiation dose reduction was achieved using automated exposure control or adjustment of mA and/or kV according to patient size. COMPARISON: None FINDINGS: Lower thorax: Cardiomegaly. Lung bases are clear.. Liver: Hepatic parenchyma is diffusely decreased in attenuation without focal mass lesion. Biliary system: No calcified cholelithiasis or pericholecystic inflammation. No evidence of bile duct dilatation. Pancreas: Unremarkable without mass or inflammation evident. Spleen: Normal in size and density. Adrenals: Normal morphology and density. Reproductive system: As below Urinary system: Normal renal size and attenuation. No renal calculi, hydronephrosis, or solid mass present. Urinary bladder unremarkable. Gastrointestinal system: Moderate fecal debris throughout the colon. Partial sigmoidectomy noted. There is an adjacent chronic-appearing extraluminal abscess with free fistulous communication to the colon at the level of the anastomosis. Overall, abscess measures approximately 4.5 cm. Additionally, several cysts noted in the uterine fundus also appears to be intimately associated with adjacent small bowel Appendix: No findings to suggest acute appendicitis. Peritoneal spaces: No mesenteric or retroperitoneal adenopathy. No free air. No free fluid. Vasculature: The IVC, aorta and iliac vasculature are unremarkable. Abdominal wall: Small periumbilical ventral hernia Musculoskeletal: Normal bone mineralization. No acute fractures. 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 Additionally, small bowel matted to the serosal surface of the uterine fundus also associated with several myometrial cystic structures, raising the possibility of enteric- uterine fistula as well. Consider follow-up contrast MRI pelvis Forms: PCP List Discharge Date/Time: 06/11/23 19:26
[2023-06-11] MEDS ORDERED: ONDANSETRON 4 MG/2 ML VIAL IVP STA (14:59)
[2023-06-11 15:42] LABS: HCG UR QUAL NEGATIVE
--- NOTE | 2023-06-11 18:18 | CT Report ---
PROCEDURE: CT abdomen pelvis with contrast INDICATIONS: Lower abdominal pain TECHNIQUE: Helical axial CT of the abdomen and pelvis was obtained after intravenous contrast adminis tration and reformatted in multiple planes. Radiation dose reduction was achieved using automated exp osure control or adjustment of mA and/or kV according to patient size. COMPARISON: None FINDINGS: Lower thorax: Cardiomegaly. Lung bases are clear.. Liver: Hepatic parenchyma is diffusely decreased in attenuation without focal mass lesion. Biliary system: No calcified cholelithiasis or pericholecystic inflammation. No evidence of bile du ct dilatation. Pancreas: Unremarkable without mass or inflammation evident. Spleen: Normal in size and density. Adrenals: Normal morphology and density. Reproductive system: As below Urinary system: Normal renal size and attenuation. No renal calculi, hydronephrosis, or solid mass p resent. Urinary bladder unremarkable. Gastrointestinal system: Moderate fecal debris throughout the colon. Partial sigmoidectomy noted. Th ere is an adjacent chronic-appearing extraluminal abscess with free fistulous communication to the co baudilio at the level of the anastomosis. Overall, abscess measures approximately 4.5 cm. Additionally, se veral cysts noted in the uterine fundus also appears to be intimately associated with adjacent small bowel Appendix: No findings to suggest acute appendicitis. Peritoneal spaces: No mesenteric or retroperitoneal adenopathy. No free air. No free fluid. Vasculature: The IVC, aorta and iliac vasculature are unremarkable. Abdominal wall: Small periumbilical ventral hernia Musculoskeletal: Normal bone mineralization. No acute fractures. 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 Ad ditionally, small bowel matted to the serosal surface of the uterine fundus also associated with anant ral myometrial cystic structures, raising the possibility of enteric-uterine fistula as well. Conside r follow-up contrast MRI pelvis Reviewed by: Joe Carcamo MD on 06/11/2023 5:17 PM ADOLFO Approved by: Joe Carcamo MD on 06/11/2023 5:17 PM ADOLFO Station ID: [id number]
[2023-06-11] MEDS ORDERED: IOVERSOL 320 100 ML VIAL IVP ONE (18:21)
[2023-06-11] MEDS ORDERED: SODIUM CHLORIDE 0.9% 1,000 ML IV STA (18:31)
[2023-06-11] MEDS ORDERED: CIPROFLOXACIN 250 MG TABLET PO STA (18:54)
[2023-06-11] MEDS ORDERED: metroNIDAZOLE 250 MG TABLET PO STA (18:54)
[2023-06-11 19:25] VITALS: BP 124/64; O2SAT 100
== END 2023-06-11 19:26 | disposition home or self-care (01) ==
LOC: ED 13:01
DX: K65.1 Peritoneal abscess (principal)
CPT/HCPCS: 36415; 74177; 80053; 81003; 81025; 83690; 85025; 96374; 96375; 96376; 99284; A9270; Q9967; 81001; 87086

== ENCOUNTER 2023-07-21 10:26 | Outpatient (CLI) | payer MEDICARE, MEDICAID ==
[2023-07-21 10:50] LABS: BASOPHILS % (AUTO) 0.7 %; EOSINOPHILS # (AUTO) 0.1 10^3/uL (0.0-0.7); EOSINOPHILS % (AUTO) 2.1 %; HCT - HEMATOCRIT 37.9 % (37.0-47.0); HGB - HEMOGLOBIN 12.3 g/dL (12.0-16.0); LYMPHOCYTES # (AUTO) 1.9 10^3/uL (1.5-3.5); LYMPHOCYTES % (AUTO) 31.7 %; MEAN CORPUSCULAR HEMOGLOBIN 30.1 pg (27.0-31.0); MEAN CORPUSCULAR HGB CONC 32.5 g/dL (32.0-36.0); MEAN CORPUSCULAR VOLUME 92.9 fL (81.0-99.0); MEAN PLATELET VOLUME 8.5 fL (7.9-10.8); MONOCYTES # (AUTO) 0.5 10^3/uL (0.0-1.0); MONOCYTES % (AUTO) 8.7 %; NEUTROPHILS # (AUTO) 3.5 10^3/uL (1.5-6.6); NEUTROPHILS % (AUTO) 56.6 %; PLT - PLATELET COUNT 297 10^3/uL (130-450); RED BLOOD COUNT 4.08 10^6/uL (4.20-5.40); WHITE BLOOD COUNT 6.1 x10^3/uL (4.8-10.8)
[2023-07-21 11:05] LABS: ALBUMIN 4.3 g/dL (3.2-5.5); ALBUMIN/GLOBULIN RATIO 1.1 (1.0-2.2); ALKALINE PHOSPHATASE 48 IU/L (42-121); ALT ALANINE AMINOTRANSFERASE 11 IU/L (10-60); AST ASPARTATE AMINOTRANSFERASE 13 IU/L (10-42); BILIRUBIN,TOTAL 0.3 mg/dL (0.2-1.0); BUN - BLOOD UREA NITROGEN 10 mg/dL (6-20); CALCIUM 9.6 mg/dL (8.5-10.3); CARBON DIOXIDE - CO2 31 mmol/L (21-32); CHLORIDE 102 mmol/L (101-111); CHOL/HDL RATIO 3.5 (<4.4); CHOLESTEROL 158 mg/dL; CREATININE 0.8 mg/dL (0.6-1.3); GFR - MDRD 79 (>89); GLUCOSE 109 mg/dL (74-104); HDL CHOLESTEROL 45 mg/dL; LDL CHOLESTEROL,CALCULATED 84 mg/dL; LDL/HDL RATIO 1.9 (<4.4); POTASSIUM 4.2 mmol/L (3.5-4.5); SODIUM 138 mmol/L (135-145); TOTAL PROTEIN 8.1 g/dL (6.4-8.9); TRIGLYCERIDES 145 mg/dL (48-352); VLDL CHOLESTEROL 29 mg/dL
[2023-07-21 11:20] LABS: THYROID STIMULATING HORMONE 2.02 uIU/mL (0.34-5.60)
== END 2023-07-21 10:27 | disposition home or self-care (01) ==
LOC: LAB 10:26
PROVIDERS: ATTEND Internal Medicine
DX: Z00.00 Encounter for general adult medical examination without abnormal findings (principal); F41.9 Anxiety disorder, unspecified; G44.89 Other headache syndrome; I10 Essential (primary) hypertension; G43.909 Migraine, unspecified, not intractable, without status migrainosus; Z79.899 Other long term (current) drug therapy; Q93.82 Williams syndrome
CPT/HCPCS: 36415; 80053; 80061; 83721; 84443; 85025

== ENCOUNTER 2024-03-26 16:35 | Emergency (ER) | payer MEDICARE, MEDICAID ==
--- NOTE | 2024-03-26 17:36 | XRAY Report ---
PROCEDURE: Chest 2V INDICATIONS: Cough TECHNIQUE: 2 views of the chest were acquired. COMPARISON: None. FINDINGS: Surgical changes and devices: Sternal wires. Lungs and pleura: No pleural effusions or pneumothorax. Lungs are clear. Mediastinum: Mediastinal contours appear normal. Heart size is normal. Bones and chest wall: No suspicious bony lesions. Overlying soft tissues appear unremarkable. IMPRESSION: No acute cardiopulmonary process. Reviewed by: Tracy Edwards MD on 03/26/2024 5:35 PM PDT Approved by: Tracy Edwards MD on 03/26/2024 5:35 PM PDT Station ID: [id number]
--- NOTE | 2024-03-26 18:32 | ED Physician Documentation ---
PD HPI URI - Stated complaint Stated Complaint: COVID +,CHEST PX - Chief complaint Chief Complaint: Resp - History obtained from History obtained from: Patient - History of Present Illness Timing - onset: How many days ago (5) Timing duration: Days (5) Timing details: Gradual onset, Still present Associated symptoms: Fever, Chills, Nasal congestion, Productive cough, Dyspnea (with sats 92% on oximeter at home.), NVD (diarrhea once today) Contributing factors: Sick contact (spouse with similar symptoms the past week). No: Immunocompromised, Unimmunized Similar symptoms before: Has not had sx before Review of Systems Constitutional: reports: Fever, Chills PD PAST MEDICAL HISTORY - Past Medical History Cardiovascular: Hypertension, Murmur, Valve disorder Respiratory: Asthma Neuro: Headaches, Migraines GI: Other [employer]: None : None HEENT: None Psych: Depression, Anxiety, Panic attacks Musculoskeletal: None Derm: None, Other - Past Surgical History Past Surgical History: Yes General: Bowel surgery, Colonoscopy - Present Medications Home Medications: Ambulatory Orders Medication Instructions Recorded Confirmed Clonazepam 1 mg PO QPM 02/25/13 11/23/22 Escitalopram [Lexapro] 10 mg PO DAILY 02/25/13 11/23/22 LORazepam [Ativan] 1 mg PO ONCE PRN 02/25/13 11/23/22 Propranolol ER [Inderal LA] 80 mg PO DAILY 02/25/13 11/23/22 Buspirone HCl 10 mg PO TID 11/23/22 11/23/22 OLANZapine [Zyprexa] 5 mg PO HS 11/23/22 11/23/22 Ciprofloxacin HCl [Cipro] 500 mg PO BID #14 tablet 06/11/23 Ketorolac [Toradol] 10 mg PO Q6H PRN #20 tablet 06/11/23 metroNIDAZOLE [Flagyl] 500 mg PO BID #14 tablet 06/11/23 Albuterol Sulf [Ventolin Hfa 2 puffs INH QID #1 each 03/26/24 Inhaler] Benzonatate [Tessalon] 100 mg PO TID PRN #20 cap 03/26/24 Sucralfate [Carafate] 1 gm PO BID 7 Days #140 ml 03/26/24 - Allergies Allergies/Adverse Reactions: Allergies Allergy/AdvReac Type Severity Reaction Status Date / Time cephalexin monohydrate * Allergy Severe Edema Verified 12/25/22 23:37 [From Keflex] erythromycin base Allergy Severe Edema Verified 12/25/22 23:37 [Erythromycin Base] Penicillins Allergy Severe Edema Verified 12/25/22 23:37 Sulfa (Sulfonamide Allergy Intermediate Rash Verified 12/25/22 23:37 Antibiotics) tetracycline [Tetracycline] Allergy Intermediate Rash Verified 12/25/22 23:37 vancomycin Allergy Intermediate Rash Verified 12/25/22 23:37 Cephalosporins Allergy Edema Verified 12/25/22 23:37 latex Allergy Hives Verified 12/25/22 23:37 tramadol AdvReac Rash Verified 03/26/24 17:08 - Social History Does the pt smoke?: No Smoking Status: Never smoker Does the pt drink ETOH?: No Does the pt have substance abuse?: No - Immunizations Immunizations are current?: Yes - POLST Patient has POLST: Yes PD ED PE NORMAL - Vitals Vital signs reviewed: Yes (sats are good at 96%. She states 92% at home. ) - General General: Alert and oriented X 3, Well developed/nourished - HEENT HEENT: Pharynx benign - Neck Neck: Supple, no meningeal sign, No adenopathy - Cardiac Cardiac: RRR, No murmur - Respiratory Respiratory: No respiratory distress. No: Clear bilaterally (some wheezing noted without increased resp effort/work. ) - Abdomen Abdomen: Soft, Non distended, Other (mild tender epigastric. ) - Derm Derm: Normal color, Warm and dry - Extremities Extremities: No tenderness to palpate, Normal ROM s pain, No edema, No calf tenderness / cord - Neuro Neuro: Alert and oriented X 3, No motor deficit, Normal speech Results - Vitals Vitals: Oxygen O2 Source Room air - Rads (name of study) chest xray Relevant Findings:: Prelim report reviewed (no acute process), EMP independent interpretation of test PD Medical Decision Making - ED course Complexity details: reviewed results (no pneumonia nor pneumonitis appearance on xray.), considered differential (she has had cough and dyspnea with dx COVID. Noted wheezing. Can treat with Albutoerol. Has had heart burn with known GERD. On PPI. Can add carafate. ), d/w patient Departure - Departure Disposition: 01 Home, Self Care Clinical Impression: COVID-19, Dyspnea, Cough, Nausea Condition: Stable Record reviewed to determine appropriate education?: Yes Instructions: ED URI Viral W Wheezing Follow-Up: Teresa Duffy MD [Primary Care Provider] - Prescriptions: Sucralfate [Carafate] 1 gm PO BID 7 Days #140 ml Benzonatate [Tessalon] 100 mg PO TID PRN #20 cap PRN Reason: Cough Albuterol Sulf [Ventolin Hfa Inhaler] 2 puffs INH QID #1 each Comments: Your chest x-ray does not show any signs of pneumonia. Your oxygenation is adequate. You do have some wheezing diffusely. We can try to help that with an albuterol inhaler 2 puffs 4 times daily with a spacer. Additionally to help with your cough, you can add benzonatate/Tessalon. Stay well-hydrated and frequent fluids. Continue your usual Reglan at home. You were given an extra dose here as an injection. You are also given a injection of a dexamethasone steroid to help with inflammation through the airways. This should help decrease some of the bronchial symptoms related to the COVID. No signs of pneumonia on x-ray. I given the timing of your symptoms I would not see any indication for antibiotics as this would be still all viral. Given your increased reflux/heartburn symptoms, I might suggest adding sacral fate 2-3 times daily for the next several days to week. This coats the stomach a little bit better. I sent new prescriptions to [facility] pharmacy. Follow-up with your primary care in the next day or 2 if not improving well and return if worse. Forms: PCP List Discharge Date/Time: 03/26/24 19:16
[2024-03-26] MEDS: SUCRALFATE 1 GM/10 ML UDC PO STA (18:40)
[2024-03-26] MEDS: METOCLOPRAMIDE 10 MG/2 ML VIAL IM STA (18:43)
[2024-03-26] MEDS: DEXAMETHASONE 10 MG/ML VIAL IM STA (18:43)
[2024-03-26] MEDS: ALBUTEROL NEB 2.5 MG/3 ML INH STA (18:45)
[2024-03-26 19:26] VITALS: BP 140/80; O2SAT 99
== END 2024-03-26 19:16 | disposition home or self-care (01) ==
LOC: ED 16:35
DX: U07.1 COVID-19 (principal)
CPT/HCPCS: 71046; 94640; 94664; 96372; 99284; A9270; J2765